=== PATIENT | male | born 1970 | race Caucasian/White ===

== ENCOUNTER → 2022-01-03 13:59 | Outpatient (CLI) | payer OTHER, SELFPAY | PROVIDERS: PCP Nurse Practitioner Family; Visit Provider Internal Medicine Gastroenterology | DX: Z01.812 Encounter for preprocedural laboratory examination (principal); Z11.52 Encounter for screening for COVID-19; Z12.11 Encounter for screening for malignant neoplasm of colon; R19.7 Diarrhea, unspecified | CPT/HCPCS: C9803; U0003; U0005 ==

== ENCOUNTER 2022-01-03 14:25 | Emergency (ER) | payer OTHER, SELFPAY ==
[2022-01-03 15:08] VITALS: BP 128/86; PULSE 91; RESP 20; TEMP 36.9; O2SAT 98; BMI 28.0
--- NOTE | 2022-01-03 15:11 | HMH.EDUTC ---
[facility] [place] Disposition Clinical Impression: Poison hanh, Anal irritation Disposition: Home, Self-Care Condition on Discharge: Good Instructions: DI for Poison Hanh Allergy Additional Instructions: Drink plenty of fluids. Take tylenol or ibuprofen for pain or fever. Take the medications as directed. Follow up with your regular doctor. GO TO THE ER FOR ANY WORSENING SYMPTOMS The triamcinolone cream is for the rash on your arm. Do not put it on your face or groin area. Prescriptions: methylPREDNISolone [Medrol] 4 mg PO DIRECTED 6 Days #21 packet Transmission Status: Received by [facility] Pramoxine HCl [Proctofoam] 1 applic TP TIDP PRN #15 g PRN Reason: Hemorrhoids Transmission Status: Received by [facility] Triamcinolone Acetonide 1 applicatio TP TIDP PRN 7 Days #1 gm PRN Reason: Itching Transmission Status: Received by [facility] Referrals: Nancy Delacruz APRN [Primary Care Provider] - Time of Disposition: 16:16 Medical Decision Making - Medical Records Medical records reviewed: No: I reviewed the patient's medical records. - Jayden Inquiry Pt receiving controlled substance: No Vital Signs: 01/03/22 15:08 01/03/22 16:22 Temperature 98.4 F 98.4 F Temperature Source Oral Pulse Rate 91 H Pulse Rate [Radial] 91 H Respiratory Rate 20 20 Blood Pressure 128/86 Blood Pressure [Right Arm] 128/86 Blood Pressure Mean [Right Arm] 100 02 Sat by Pulse Oximetry 98 [facility] [place] HPI - General Stated complaint: lower back/buttock pain, rash Time Seen by Provider: 01/03/22 15:11 Mode of Arrival: Ambulatory Source of Information: Patient Limitations: No Limitations Description of Symptoms (Recalled from Triage Doc. by RN): pt here for rash. burning pain with rash on arm and diarrhea. pt also states that he has pain in his back. locations: left hand, forearm,butt. 3 days HEENT Symptoms (Recalled from RN notes): No Resp Symptoms (Recalled from RN notes): No Skin Symptoms (Recalled from RN notes): Yes MS Symptoms (Recalled from RN notes): No Functional Status (Recalled from RN notes): wnl - History of Present Illness Provider Complaint: He states that he has chronic diarrhea and he is having irritation of his rectal area. He has a colonoscopy scheduled for 3 days from now to assess the chronic diarrhea. He is also having a rash and itching of his left hand and forearm. - Related Data Previous Rx's Medication Instructions Recorded peg 3350-electrolytes 236 240 ml PO Q10M #4000 ml 12/29/21 gram-22.74 gram-6.74 gram-5.86 gram solution Pramoxine HCl [Proctofoam] 1 applic TP TIDP PRN #15 g 01/03/22 Triamcinolone Acetonide 1 applicatio TP TIDP PRN 7 Days #1 01/03/22 gm methylPREDNISolone [Medrol] 4 mg PO DIRECTED 6 Days #21 01/03/22 packet Allergies Allergy/AdvReac Type Severity Reaction Status Date / Time codeine Allergy Verified 01/03/22 15:11 - Worker's Comp Is this a Worker's Comp case?: No [facility] History - Hepatitis A Screen Attestation statement:: This patient has been screened for Hepatitis A risk factors. I have reviewed the patient's past medical history: Yes Medical History: Reports:: Cancer (skin) Denies:: Diabetes Mellitus Type 1, Diabetes Mellitus Type 2, Internal Pacemaker, MRSA Other Surgeries: No: Pacemaker Amputation: No - Social History Smoking Status: Current every day smoker Tobacco Type: cigarettes # Packs/Day (cigarettes): 3 Alcohol Intake: never Occupational Status: unemployed Housing: house Family Hx:: Cancer, Diabetes, Heart Attack ROS Obtained: Yes All systems reviewed & no additional complaints - Constitutional Constitutional: Reports as per HPI - Eyes Eyes: Denies eye discharge - ENT Ears, Nose, Mouth, and Throat: Reports as per HPI Physical Exam - General General appearance: alert, in no apparent distress - Head Head exam: atraumatic, normocephalic, normal inspection - Eye
[2022-01-03 16:22] VITALS: BP 128/86; PULSE 91; RESP 20; TEMP 36.9
== END 2022-01-03 16:22 | disposition home or self-care (01) ==
PROVIDERS: Emergency Provider Nurse Practitioner Family; PCP Nurse Practitioner Family
DX: L23.7 Allergic contact dermatitis due to plants, except food (principal); R21 Rash and other nonspecific skin eruption; K62.89 Other specified diseases of anus and rectum; R19.7 Diarrhea, unspecified; M54.50 Low back pain, unspecified; F17.210 Nicotine dependence, cigarettes, uncomplicated; Z79.52 Long term (current) use of systemic steroids; Z79.899 Other long term (current) drug therapy; Z88.5 Allergy status to narcotic agent; Z85.828 Personal history of other malignant neoplasm of skin; Z82.49 Family history of ischemic heart disease and other diseases of the circulatory system; Z80.9 Family history of malignant neoplasm, unspecified; Z83.3 Family history of diabetes mellitus
CPT/HCPCS: 99213; G0463

== ENCOUNTER 2022-01-05 08:29 | Day surgery (SDC) | payer OTHER, SELFPAY ==
[2022-01-02 11:22] VITALS: BMI 28.5
[2022-01-05 08:54] VITALS: BP 103/61; PULSE 67; RESP 18; TEMP 36.7; O2SAT 97
--- NOTE | 2022-01-05 09:35 | P.PN_ITS ---
[facility] Anesthesia Checklist - Patient Identification Patient Identification: Arm Band - Structural Data Admitted From: Home Planned Operative Procedure/s: Colonoscopy Consent for Planned Operative Procedure(s) Verified: Yes - NPO Status Verified Time NPO: 00:00 - Airway Assessment C-Spine Mobility Assessed: Yes TMJ Mobility Assessed: Yes Dentition: Edentulous - Neurological Assessment Level of Consciousness: Awake Hx Seizures: No Numbness or tingling in extremities: No - Anesthesia Plan Anesthesia Risk discussed: Yes Anesthesia Plan: Verified ASA Class: II Anesthesia Type: MAC [facility] History I have reviewed the patient's past medical history: Yes Medical History: Reports:: Cancer (skin) Denies:: Diabetes Mellitus Type 1, Diabetes Mellitus Type 2, Internal Pacemaker, MRSA, Seizures *Have you ever received a pneumonia vaccine?: No *Have you received a flu vaccine this season?: No Anesthesia experience/problems:: None Other Surgeries: No: Pacemaker Amputation: No - *Social History Last grade of school completed: High school graduate Smoking Status: Current every day smoker Tobacco Type: cigarettes # Packs/Day (cigarettes): 3 Alcohol Intake: never Substance Use Type: denies use *Occupational Status:: unemployed Housing: house *Travel in the last 8 weeks: None Family Hx:: Cancer, Diabetes, Heart Attack
[2022-01-05 09:47] VITALS: O2SAT 98
--- NOTE | 2022-01-05 10:01 | HMH.SCOPE ---
- Procedure: Date: 01/05/22 Patient Date of :: 1970 Procedure Performed:: Diagnostic colonoscopy with random biopsies Indications:: Diarrhea and weight loss Performing Provider:: Yair Saucedo MD Referring Provider:: Nancy Delacruz APRN Sedation:: Propofol Procedure:: After placing the patient in the left lateral decubitus position, the colonoscopy was gently inserted into the rectum and under direct visualization advanced to the cecum which was identified by transillumination in the right lower quadrant, identification of the ileocecal valve, appendiceal orifice, and cecal strap. Color, texture, mucosa, and anatomy of the colon were carefully examined with the scope. Findings:: Anal canal: normal Rectum: normal Sigmoid colon: normal without polyps or inflammatory changes Descending colon: normal without polyps or inflammatory changes Splenic flexure: normal Transverse colon: normal without polyps or inflammatory changes Hepatic flexure: normal Ascending colon: normal without polyps or inflammatory changes Cecum: normal Terminal ileum: not visualized Random biopsies 0btained for analysis Impression: Normal colonoscopy without evidence of inflammatory bowel disease Specimens:: Random colon samples Recommendations:: Repeat colonoscopy in about TEN years or so Consider GI consultation as clinically indicated Complications:: None Estimated blood obtained (mL): 0
[2022-01-05 10:04] VITALS: BP 94/59; PULSE 82; RESP 18; TEMP 36.3; O2SAT 92
[2022-01-05 10:14] VITALS: BP 100/70; PULSE 82; RESP 18; TEMP 36.3; O2SAT 92
[2022-01-05 10:24] VITALS: BP 110/50; PULSE 68; RESP 18; O2SAT 95
[2022-01-05 10:40] VITALS: BP 110/68; PULSE 74; RESP 18; TEMP 36.3; O2SAT 95
== END 2022-01-05 10:40 | disposition home or self-care (01) ==
LOC: OUTP 08:30
PROVIDERS: PCP Nurse Practitioner Family; Visit Provider Internal Medicine Gastroenterology
PROC: 0DJD8ZZ Inspection of Lower Intestinal Tract, Via Natural or Artificial Opening Endoscopic (ICD-10-PCS; CPT 45378; principal; 2022-01-05 09:30)
DX: R63.4 Abnormal weight loss (principal); Z85.828 Personal history of other malignant neoplasm of skin; Z72.0 Tobacco use; Z80.9 Family history of malignant neoplasm, unspecified; Z83.3 Family history of diabetes mellitus; Z82.3 Family history of stroke; Z88.6 Allergy status to analgesic agent; R19.7 Diarrhea, unspecified
CPT/HCPCS: 45380

== ENCOUNTER 2022-01-23 07:22 | Emergency (ER) | payer OTHER, SELFPAY ==
[2022-01-23 07:23] VITALS: BP 122/78; PULSE 105; RESP 18; TEMP 36.9; O2SAT 97; BMI 27.1
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
[2022-01-23 08:54] LABS: Microscopic, Urine URINE MICROSCOPIC (MICROSCOPIC)
[2022-01-23 08:56] LABS: Appearance,Urine CLEAR (Clear); Bilirubin,Urine Negative (Negative); Blood, Urine Negative (Negative); Color,Urine YELLOW (Yellow); Glucose,Urine (UA) Negative (Negative); Ketones,Urine Negative (Negative); Leukocyte Esterase,Urine Negative (Negative); Nitrate,Urine Negative (Negative); Protein,Urine Negative (Negative); Specific Gravity, Urine 1.025 (1.005-1.030); Urobilinogen,Urine 0.2 EU/dl (0.2)
[2022-01-23 09:18] LABS: Bacteria,Urine Trace /lpf
--- NOTE | 2022-01-23 09:28 | PC.NURSE ---
VEGA ROACH at
--- NOTE | 2022-01-23 09:52 | US_ITS ---
PROCEDURE INFORMATION: Exam: US Scrotum Exam date and time: 01/23/2022 10:31 AM Age: 51 years old Clinical indication: Scrotum pain; Patient HX: Lt test pain; Additional info: Testicular pain TECHNIQUE: Imaging protocol: Real-time ultrasound of the scrotum and contents with color Doppler and image documentation. COMPARISON: CT LUMBAR SPINE WO CON 01/23/2022 10:06 AM FINDINGS: Right testicle: Normal. No mass. No torsion. Normal vascular flow. Left testicle: Normal. No mass. No torsion. Normal vascular flow. Epididymides: Normal. Scrotum: Normal. Soft tissue fullness by the left groin could represent a left inguinal hernia. IMPRESSION: Normal testicular ultrasound. Soft tissue fullness by the left groin/scrotum may reflect a left inguinal hernia. Please correlate clinically. Follow-up pelvic CT scan is recommended as clinically indicated.
--- NOTE | 2022-01-23 09:53 | CT_ITS ---
PROCEDURE INFORMATION: Exam: CT Lumbar Spine Without Contrast Exam date and time: 01/23/2022 10:06 AM Age: 51 years old Clinical indication: Low back pain. TECHNIQUE: Imaging protocol: Computed tomography images of the lumbar spine without contrast. Radiation optimization: All CT scans at this facility use at least one of these dose optimization techniques: automated exposure control; mA and/or kV adjustment per patient size (includes targeted exams where dose is matched to clinical indication); or iterative reconstruction. COMPARISON: No relevant prior studies available. FINDINGS: L4-L5: There is grade 1/2 anterior spondylolisthesis this level. There is bilateral L4 spondylolysis. There is severe disc space narrowing and desiccation. There are severe degenerative end plate changes at this level. There is a calcified disc herniation at this level. There is vacuum disc phenomena at this level. There is severe bilateral neural foraminal narrowing. There is exuberant bilateral facet arthropathy and ligamentum flavum hypertrophy. L5-S1: There is disc space narrowing and desiccation. There are moderate degenerative end plate changes at this level. There is vacuum disc phenomena at this level. There is left-sided L5 spondylolysis. IMPRESSION: Advanced degenerative changes at L4/5 and L5/S1. Please see details above.
--- NOTE | 2022-01-23 10:06 | PC.NURSE ---
pt to radiology
--- NOTE | 2022-01-23 10:06 | PC.NURSE ---
radiology aware of ultrasound order
--- NOTE | 2022-01-23 10:30 | PC.NURSE ---
rad staff states u/s tech just got here updated pt, pt states no needs at this time, sitting up on side of the bed
[2022-01-23 11:50] VITALS: BP 125/81; PULSE 98; RESP 19; TEMP 36.9; O2SAT 98
== END 2022-01-23 11:50 | disposition home or self-care (01) ==
PROVIDERS: Emergency Medicine; Emergency Provider Emergency Medicine; PCP Nurse Practitioner Family
DX: M47.817 Spondylosis without myelopathy or radiculopathy, lumbosacral region (principal); N50.819 Testicular pain, unspecified; K40.90 Unilateral inguinal hernia, without obstruction or gangrene, not specified as recurrent; G89.29 Other chronic pain; F17.210 Nicotine dependence, cigarettes, uncomplicated; Z85.828 Personal history of other malignant neoplasm of skin; Z79.52 Long term (current) use of systemic steroids; Z79.899 Other long term (current) drug therapy; Z88.5 Allergy status to narcotic agent; Z82.49 Family history of ischemic heart disease and other diseases of the circulatory system; Z80.9 Family history of malignant neoplasm, unspecified; Z83.3 Family history of diabetes mellitus; V86.95XA Unspecified occupant of 3- or 4- wheeled all-terrain vehicle (ATV) injured in nontraffic accident, initial encounter
CPT/HCPCS: 72131; 76870; 81001; 99285

== ENCOUNTER → 2022-03-11 09:26 | Outpatient (CLI) | payer OTHER, SELFPAY | PROVIDERS: PCP Nurse Practitioner Family; Visit Provider Nurse Practitioner Family | DX: G47.33 Obstructive sleep apnea (adult) (pediatric) (principal); R06.83 Snoring | CPT/HCPCS: 95806 ==

== ENCOUNTER → 2022-03-21 12:21 | Outpatient (CLI) | payer OTHER, SELFPAY ==
--- NOTE | 2022-03-21 12:25 | XR_ITS ---
FINAL REPORT CLINICAL HISTORY: S/P COVID 19,BRONCHITIS FINDINGS: PA and lateral views of the chest are obtained. There is no prior exam for comparison. The cardiac and silhouette is within normal limits. There is prominence to the left hilum. Lymphadenopathy is not excluded. The lungs are clear. There is no pleural effusion or pneumothorax. IMPRESSION: Prominence to the left hilum. Recommend 4 week follow-up chest x-ray or chest CT. Reviewed, Interpreted and Dictated by Becky Jurado MD Transcribed by Lona Kinney Authenticated and [facility]
== END ==
PROVIDERS: PCP Nurse Practitioner Family; Visit Provider Nurse Practitioner Family
DX: U09.9 Post COVID-19 condition, unspecified (principal); J40 Bronchitis, not specified as acute or chronic
CPT/HCPCS: 71046

== ENCOUNTER 2023-12-05 06:52 | Outpatient (CLI) | payer OTHER, SELFPAY ==
--- NOTE | 2023-12-05 06:55 | CT_ITS ---
FINAL REPORT TECHNIQUE: Thin section axial images were obtained from the lung apices to the upper abdomen by computed tomography. Reformatted images were obtained and reviewed. This study was performed with techniques to keep radiation doses al low as reasonably achievable (ALARA). Individualized dose reduction techniques using automated exposure control or adjustment of mA and/or kV according to the patient's size were employed. CLINICAL HISTORY: HX NICOTINE DEPENDENCE 3ppd x 35 years FINDINGS: CHEST CT LOW DOSE CTDI vol (mGy): 2.90 DLP (mGy-cm): 99.77 There is no axillary adenopathy. There are multiple borderline size mediastinal nodes, favor reactive. The heart is normal in size. There is no pericardial or pleural effusion. There is moderate emphysema and mild pulmonary scarring. There is lingular atelectasis or scar. There are multiple small nodules in the right upper lobe, largest measures 5 mm. This is best seen on image 40. Limited images of the upper abdomen are unremarkable. IMPRESSION: Right upper lobe nodules. Lung-RADS category 2. Recommend 12 month follow up low dose chest CT. Reviewed, Interpreted and Dictated by Eitan Deluna III, MD Transcribed by Maryjo Beckford Authenticated and [facility]
== END 2023-12-05 23:59 ==
LOC: RAD 06:53
PROVIDERS: PCP Internal Medicine Adolescent Medicine; Visit Provider Internal Medicine Adolescent Medicine
DX: Z87.891 Personal history of nicotine dependence (principal); Z12.2 Encounter for screening for malignant neoplasm of respiratory organs
CPT/HCPCS: 71271

== ENCOUNTER 2024-01-22 11:06 | Emergency (ER) | payer OTHER, SELFPAY ==
[2024-01-22 11:20] VITALS: BP 142/84; PULSE 79; RESP 18; TEMP 37; O2SAT 94; BMI 33.5
--- NOTE | 2024-01-22 11:23 | EXP.UTC ---
Discharge Plan Disposition Patient Disposition: Home, Self-Care Condition: Good Prescriptions Prescriptions: New furosemide [Lasix] 20 mg tablet 20 mg PO DAILY 7 Days Qty: 7 0RF No Action pramoxine 15 GM foam 1 applic TP TIDP PRN (Reason: Hemorrhoids) Qty: 15 0RF triamcinolone acetonide 15 GM cream 1 applicatio TP TIDP PRN (Reason: Itching) 7 Days Qty: 1 0RF Rx Instructions: 0.025% trazodone 150 mg tablet 150 mg PO DAILY losartan 100 mg tablet 100 mg PO DAILY hydroxyzine pamoate 25 mg capsule 25 mg PO DAILY escitalopram oxalate 20 mg tablet 20 mg PO DAILY rosuvastatin 20 mg tablet 20 mg PO DAILY pregabalin 25 mg capsule 25 mg PO DAILY fluticasone propion-salmeterol [Advair HFA] 115-21 mcg/actuation HFA aerosol inhaler See Rx Instructions .ROUTE .COMPLEX Rx Instructions: see rx instructions Referrals Follow up/Referrals: Sen Fine MD [Primary Care Provider] - See instructions Activity Restrictions/Add. Instructions Additional Instructions/Restrictions: Take the medications as directed. Make sure you are walking plenty and getting plenty of exercise. Follow up with your regular doctor. GO TO THE ER FOR ANY WORSENING SYMPTOMS Clinical Impressions Clinical Impression: Pedal edema Instructions Patient Instructions: DI for Dependent Edema, Furosemide, Edema Discharge ED Provider: Isaias Thomas [facility] HPI General Stated complaint: left leg swelling, left knee pain, back pain Time Seen by Provider: 01/22/24 11:23 History of Present Illness Provider Complaint: He states that for the past 1 week he has had bilateral pedal edema. He states that in the past he had this and his pcp precribed him a week of a water pill and it got better. He believes he has been eating too much salt lately. Related Data Home Medications Medication Instructions Recorded Confirmed escitalopram oxalate 20 mg tablet 20 mg PO DAILY 01/22/24 01/22/24 fluticasone propionate 115 See Rx Instructions .Route .COMPLEX 01/22/24 01/22/24 mcg-salmeterol 21 mcg/actuation HFA inhaler (Advair HFA) hydroxyzine pamoate 25 mg capsule 25 mg PO DAILY 01/22/24 01/22/24 losartan 100 mg tablet 100 mg PO DAILY 01/22/24 01/22/24 pregabalin 25 mg capsule 25 mg PO DAILY 01/22/24 01/22/24 rosuvastatin 20 mg tablet 20 mg PO DAILY 01/22/24 01/22/24 trazodone 150 mg tablet 150 mg PO DAILY 01/22/24 01/22/24 Previous Rx's Medication Instructions Recorded pramoxine 1 % topical foam 1 applic topical TIDP PRN 01/03/22 Hemorrhoids #15 grams triamcinolone acetonide 0.025 % 1 applicatio topical TIDP PRN 01/03/22 topical cream Itching 7 days ##1 furosemide 20 mg tablet (Lasix) 20 mg PO DAILY 7 days #7 tabs 01/22/24 Allergies Allergy/AdvReac Type Severity Reaction Status Date / Time codeine Allergy Verified 01/22/24 11:33 [facility] Disclaimer: The information contained in this section may have been updated after the patient was seen, as this information can be updated by other users. Social History Smoking Status: Current every day smoker tobacco type: cigarettes packs per day: 3 alcohol intake: never substance use type: denies use current occupational status: unemployed Travel in the last 8 weeks: None housing: house caffeine: Yes ROS Obtained: Yes All systems reviewed & no additional complaints except as documented Constitutional Constitutional: Denies chills and Denies fever(s) Eyes Eyes: Denies eye discharge ENT Ears, Nose, Mouth, and Throat: Denies dizziness, Denies otalgia and Denies sore throat Cardiovascular Cardiovascular: Reports as per HPI, Denies chest pain, Reports edema and Denies leg edema Respiratory Respiratory: Denies shortness of breath, Denies chest congestion, Denies cough, Denies stridor and Denies wheezing Gastrointestinal Gastrointestingal: Denies nausea or vomiting Musculoskeletal Musculoskeletal: Reports system reviewed and no additional complaints, except as documented and Denies arthralgias Integumentary/Breasts Skin/Breast: Denies rash Neurologic Neurologic: Denies dizziness and Denies paresthesias Allergic/Immunologic Allergic/Immunologic: Denies wheezing Physical Exam General General appearance: alert and in no apparent distress Head Head exam: atraumatic, normocephalic and normal inspection Eye Eye exam: Present normal appearance, PERRL and EOMI ENT ENT exam: Present normal exam, normal oropharynx, mucous membranes moist, TM's normal bilaterally and normal external ear exam Neck Neck exam: Present normal inspection, full ROM and trachea midline; Absent meningismus or lymphadenopathy Chest Chest inspection: Present normal inspection and symmetric chest wall rise; Absent tenderness Respiratory Respiratory exam: Present normal lung sounds bilaterally; Absent respiratory distress Cardiovascular Cardiovascular exam: Present regular rate and normal rhythm; Absent JVD Abdominal Exam Abdominal exam: Present soft and normal bowel sounds; Absent distention, tenderness or guarding Extremities Exam Extremities exam: Present normal inspection, full ROM and normal capillary refill; Absent calf tenderness Back Exam Back exam: Present normal inspection; Absent tenderness Neurological Exam Neurological exam: Present alert and oriented X3 Psychiatric Psychiatric exam: Present normal affect and normal mood Skin Skin exam: Present warm, dry, intact and normal color Lymphatic Lymphatic Findings: no adenopathy Medical Decision Making Medical Records Medical records reviewed: No I reviewed the patient's medical records. Jayden Inquiry Pt receiving controlled substance: No Lab Data Lab results reviewed: Yes I reviewed the patient's lab results.
[2024-01-22 12:11] VITALS: BP 142/84; PULSE 79; RESP 18; TEMP 37; O2SAT 94
== END 2024-01-22 12:11 | disposition home or self-care (01) ==
PROVIDERS: Emergency Provider Nurse Practitioner Family; PCP Internal Medicine Adolescent Medicine
DX: R60.0 Localized edema (principal)
CPT/HCPCS: 99212; 99214; G0463

== ENCOUNTER 2024-02-07 12:54 | Outpatient (CLI) | payer OTHER, SELFPAY ==
--- NOTE | 2024-02-07 | CA_ITS ---
APPROVED REPORT EXAM: Comprehensive 2D, Doppler, and color-flow Echocardiogram Schedule Clerk: ASPEN Nicholson, RVS Ht: 5 ft 10 in Wt: 240lbs BSA: 2.26 BP: 150/88 mmHg Indications: Smoker, SOA, Pedal edema, HTN, Family H/O CAD, NAPIER Echo Enhancing Agent Comments: Poor acoutic windows due to lung impedence 2D Dimensions IVSd 1.04 cm LVEF (Visual) 61.20 % PWd 1.26 cm LA Volume 57.20 mL LVDd 5.40 cm LA Volume Index 24.80 mL/m2 (M/F) 16-34 LVDs 3.61 cm Left Atrium 3.18 cm M-Mode Dimensions LA Diam 3.96 cm (1.9-4.0) EPSs 0.64 cm TAPSE 2.64 (<1.7) LV Diastology E Decel Time 213 (160-240 msec) E/A Ratio 1.37 MED A' 12.70 cm/s LAT A' 11.70 cm/s Aortic Valve ERIC Index 1.28 cm2/m2 AoV Peak Jose. 160.0 (50-130 cm/s) AO Peak GR. 10.20 mmHg AO Mean GR. 5.00 (<5 mmHg) AO VTI 26.6 (18-25 cm) ERIC (VTI) 2.95 (2.5-4.5 cm2) Mitral Valve MV A Velocity 53.0 (40-130 cm/s) E/A Ratio 1.37 Pulmonary Valve PV Peak Velocity 89.0 (50-150 cm/s) Tricuspid Valve TR P. Velocity 183.00 cm/s RAP Estimate 10.00 mmHg RVSP 23.30 mmHg Left Ventricle The left ventricle is normal size. The left ventricular systolic function is normal. The left ventricular ejection fraction is within the normal range. There is normal left ventricular wall thickness. There is normal LV segmental wall motion. The left ventricular diastolic function is normal. LVEF is 55%. Right Ventricle The right ventricle is normal size. The right ventricular systolic function is normal. Atria The left atrium size is normal. The right atrium size is normal. There is no Doppler evidence of interatrial shunt. Aortic Valve The aortic valve opens well. There is no aortic valvular stenosis. No aortic regurgitation is present. Mitral Valve The mitral valve is normal in structure. No evidence of mitral valve stenosis. There is no mitral valve regurgitation noted. Tricuspid Valve The tricuspid valve leaflets are thin and pliable. Trace tricuspid regurgitation. There is insufficient TR jet to estimate RVSP. Pulmonic Valve The pulmonary valve is normal in structure. Trace pulmonic regurgitation. Great Vessels The aortic root is normal in size. The ascending aorta is normal in size. IVC is normal in size and collapses >50% with inspiration. Pericardium There is no pericardial effusion. Other Information Study Quality: Adequate Conclusion Normal biventricular systolic function. No significant valvular stenosis or regurgitation. Electronically signed by : Odilia Raygoza MD 02/11/2024 15:03:34
== END 2024-02-07 23:59 | disposition home or self-care (01) ==
LOC: RT 12:55
PROVIDERS: PCP Internal Medicine Adolescent Medicine; Visit Provider Physician Assistant
DX: R60.0 Localized edema (principal)
CPT/HCPCS: 93306

== ENCOUNTER 2024-02-21 09:49 | Outpatient (CLI) | payer OTHER, SELFPAY ==
--- NOTE | 2024-02-21 09:59 | CA_ITS ---
FINAL REPORT CLINICAL HISTORY: EDEMA,PAIN OTILIO LE'S,SMOKER,NKI FINDINGS: Multiple transverse and longitudinal scans were performed of the femoral popliteal deep venous system, with augmentation and compression maneuvers. Normal phasic flow was noted in the visualized deep venous system. No intraluminal increased echogenicity is noted to suggest thrombus. There is normal compression and augmentation of the venous structures. No abnormal venous collaterals are seen. IMPRESSION: No evidence of deep venous thrombosis of the bilateral lower extremities. Reviewed, Interpreted and Dictated by Delmi Mueller MD Transcribed by Maryjo Beckford Authenticated and [facility]
--- NOTE | 2024-02-21 10:00 | CA_ITS ---
FINAL REPORT TECHNIQUE: Color and spectral Doppler analysis CLINICAL HISTORY: OTILIO LE PAIN,EDEMA,SMOKER FINDINGS: Right lower extremity, flow velocities (cm per second): Common femoral artery: 138 Thank you profunda: 76 Proximal SFA: 105 Mid SFA: 105 Distal SFA: 84 Anterior tibial artery: 63 Posterior tibial artery: 83 Peroneal: 67 Left lower extremity, flow velocities (cm per second): Common femoral artery: 136 Profunda: 73 Proximal SFA: 112 Mid SFA: 114 Distal SFA: 102 Anterior tibial artery: 69 Posterior tibial artery: 55 Peroneal: 91 Waveforms are noted to be triphasic. No levels of stenosis or occlusion are identified. Mild diffuse plaque disease is present. Reviewed, Interpreted and Dictated by Delmi Mueller MD Transcribed by Maryjo Beckford Authenticated and [facility]
== END 2024-02-21 23:59 | disposition home or self-care (01) ==
LOC: RT 09:49
PROVIDERS: PCP Internal Medicine Adolescent Medicine; Visit Provider Physician Assistant
DX: R60.0 Localized edema (principal)
CPT/HCPCS: 93925; 93970

== ENCOUNTER 2024-02-29 09:31 | Outpatient (CLI) | payer OTHER, SELFPAY ==
--- NOTE | 2024-02-29 09:39 | CT_ITS ---
FINAL REPORT TECHNIQUE: Axial images were obtained from the lung apex to the mid abdomen by computed tomography. Coronal and sagittal reformatted images were obtained. This study was performed with techniques to keep radiation doses as low as reasonably achievable, (ALARA). Individualized dose reduction techniques using automated exposure control or adjustment of mA and/or kV according to the patient''s size were employed. CLINICAL HISTORY: NODULE OF UPPER LOBEOF RT LUNG COMPARISON: December 05, 2023 CT FINDINGS: Multiple small mediastinal nodes are again seen and are stable. Multiple mildly enlarged axillary nodes are also stable. There is no pericardial or pleural effusion. Multiple less than 5 mm right lung nodules are again seen which are stable. No new pulmonary mass or nodule is identified. There is mild emphysema. Mild scarring is noted bilaterally. Worsening right middle lobe atelectasis is noted. A 17 mm left back subcutaneous nodule is again identified, favor a sebaceous cyst. Limited images of the upper abdomen are unremarkable. IMPRESSION: Stable small right lung nodules. These could be further evaluated with additional follow-up chest CT in 6-12 months. Worsening right middle lobe atelectasis. Authenticated and [facility]
--- NOTE | 2024-02-29 09:39 | CT_ITS ---
FINAL REPORT TECHNIQUE: Axial CT images of the abdomen and pelvis were obtained before and after the administration of IV contrast. Oral contrast was administered.This study was performed with techniques to keep radiation doses as low as reasonably achievable (ALARA). Individualized dose reduction techniques using automated exposure control or adjustment of mA and/or kV according to the patient''s size were employed. CLINICAL HISTORY: NODULE OF UPPER LOBE OF RT LUNG FINDINGS: Abdomen: The heart is normal in size. The liver has an unremarkable appearance, without evidence of mass or biliary duct dilatation. Postoperative changes are seen from cholecystectomy. There is no evidence of biliary ductal dilatation. The spleen is unremarkable. No adrenal masses present. The pancreas has an unremarkable appearance. A 9 mm low-attenuation mass is seen at the lower pole of the left kidney with a mean attenuation value of 27 Hounsfield units. This does not have the appearance of a simple cyst. No other renal mass is identified. Mild ectasia is noted of the distal abdominal aorta. There is no free fluid or adenopathy. 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 Multiple diverticula are seen in the descending colon. Precontrast images demonstrate no evidence of nephrolithiasis. Moderate vascular calcifications are seen. Pelvis: The appendix is unremarkable. The urinary bladder is unremarkable. No inflammatory process is seen. There is no evidence of mass or adenopathy. There is no evidence of bowel obstruction. Bilateral inguinal hernias are seen containing fat only. IMPRESSION: 9 mm mass lower pole of the left kidney that does not have the appearance of a simple cyst. A mildly complicated cyst is favored, but this could be further evaluated with renal mass protocol CT or renal MRI. Authenticated and [facility]
[2024-02-29 09:55] LABS: Blood Urea Nitrogen 14 mg/dl (9-20); Estimated Glomerular Filt Rate 101 ml/min (>60); GFR (African American) 122 ML/MIN (>60)
[2024-02-29] MEDS: SODIUM CHLORIDE 0.9% 10ML SYR (RAD ONLY) 10 ML IV (11:16)
[2024-02-29] MEDS: IOPAMIDOL-370 (76%);100ML BOTTLE 75 ML IV (11:16)
== END 2024-02-29 23:59 | disposition home or self-care (01) ==
LOC: RAD 09:32
PROVIDERS: PCP Internal Medicine Adolescent Medicine; Visit Provider Physician Assistant
DX: R10.84 Generalized abdominal pain (principal); R60.0 Localized edema; R91.1 Solitary pulmonary nodule
CPT/HCPCS: 36415; 71250; 74178; 82565; 84520; Q9967

== ENCOUNTER 2024-12-15 14:39 | Outpatient (CLI) | payer OTHER, SELFPAY ==
--- NOTE | 2024-12-15 | CT_ITS ---
FINAL REPORT TECHNIQUE: Thin section axial images were obtained through the lungs using a low-dose technique per lung cancer screening protocol. Reconstruction images were obtained using the axial data. Exam was performed using dose reduction technique. This study was performed with techniques to keep radiation doses as low as reasonably achievable (ALARA). Individualized dose reduction techniques using automated exposure control or adjustment of mA and/or kV according to the patient's size were employed. CLINICAL HISTORY: HX OF TOBACCO current smoker 1ppd x 35 years COMPARISON: 12/05/2023, LDCT, 02/29/2024, chest CT FINDINGS: CTDLvol: 2.90 DLP: 102.64 Current smoker 35 pack year history Lungs: No acute pulmonary abnormality. There are several 4 mm or less in size right upper lobe nodules, which are stable when compared to the prior exam. There is a 4 mm right middle lobe nodule, also stable. No new nodules are identified. Changes of emphysema are once again identified. Lymph nodes: No thoracic lymphadenopathy. There is a borderline in size left axillary node, which is stable in appearance. Mediastinum: Heart size is normal. Pleura/pericardium: No pleural or pericardial effusion. Other: No acute abnormality in the upper abdomen. The probable sebaceous cyst noted in the subcutaneous soft tissues of the left posterior chest wall is slightly smaller than seen on the prior exam of 02/29/2024. IMPRESSION: Several 4 mm or less in size right upper lobe nodules, stable. A 4 mm right middle lobe nodule is stable as well. No new nodules or masses are identified. Lung RADS: 2 Recommendation: 12-month follow-up LDCT Reviewed, Interpreted and Dictated by Becky Jurado MD Transcribed by Sakina Roth Authenticated and [facility]
== END 2024-12-15 23:59 | disposition home or self-care (01) ==
LOC: RAD 14:40
PROVIDERS: PCP Internal Medicine Adolescent Medicine; Visit Provider Internal Medicine Adolescent Medicine
DX: Z87.891 Personal history of nicotine dependence (principal)
CPT/HCPCS: 71271